=== PATIENT | male | born 1945 | race Caucasian/White ===

== ENCOUNTER → 2017-11-06 | Outpatient (CLI) | payer MEDICARE ==
[~2017-11-06] MED LIST: ASPI-1471 PO; ATOR20TA22 PO; ATOR20TA65 PO; KET10 PO; MELO-207 PO; MULT1CAP59 PO; OMEG500C7 PO; ONDA4TAB PO; PER PO; TAMS0.4C25 PO
--- NOTE | 2017-11-06 13:14 | RADIOLOGY IMAGING REPORT ---
FACILITY: [facility] [place] PATIENT NAME: Esdras Nunn : 1945 MR: [id number] V: [id number] EXAM DATE: [id number] ORDERING PHYSICIAN: SANA RED TECHNOLOGIST: Location: [facility] [place] Patient: Esdras Nunn : 1945 Visit/Account:[id number] Date of Sevice: 11/06/2017 COMPUTED TOMOGRAPHY OF THE Abdomen and Pelvis without CONTRAST INDICATION: History of kidney stones. TECHNIQUE: Contiguous axial 2.[address] images were obtained through the abdomen and pelvis without co ntrast. Coronal and sagittal reformatted images were submitted. COMPARISON: CT of October 21, 2016. FINDINGS: Lung bases: Trace atelectasis at the lung bases. Liver and hepatic vasculature: No focal liver lesion. The most superior aspect of the liver dome was not imaged. Gallbladder and bile ducts: Normal gallbladder. Spleen: Normal spleen. Small splenule anteriorly. Small splenule at the hilum. Pancreas: Normal. Adrenals: Normal. Kidneys, ureters and bladder: No hydronephrosis or collecting system obstruction. No stones. Small l eft renal cyst. The incompletely filled bladder is unremarkable. Retroperitoneum and aorta: Scattered aortic atherosclerosis. No aneurysm. GI tract, mesentery and peritoneum: Normal appendix. No bowel obstruction. No free fluid or free air. There are numerous sigmoid and left colon diverticula but no findings of diverticulitis. Prostate: Unremarkable. Bones and soft tissues: No acute osseous abnormality. Severe disc and endplate degenerative findings at L3-4 and L4-5. Mild to moderate degenerative findings at other levels. IMPRESSION: 1. No urinary tract calculus or collecting system obstruction. 2. Diverticulosis without findings of diverticulitis. One of the following dose optimization techniques was utilized in the performance of this exam: Autom ated exposure control; adjustment of the mA and/or kV according to the patient's size; or use of an i terative reconstruction technique. Specific details can be referenced in the facility's radiology C T exam operational policy. Report Dictated By: Fe Marie MD at 11/06/2017 12:54 PM Report E-Signed By: Fe Marie MD at 11/06/2017 1:09 PM WSN:[id number]
== END ==
LOC: CT 00:57
PROVIDERS: ATTEND Urology
DX: K57.30 Diverticulosis of large intestine without perforation or abscess without bleeding (principal)
CPT/HCPCS: 74176